=== PATIENT | male | born 1990 | race Two or more races ===

== ENCOUNTER 2021-02-23 17:47 | Emergency (ER) | payer SELFPAY ==
[~2021-02-23] VITALS: Ht 162.6 cm; Wt 72.6 kg
[2021-02-23 22:13] VITALS: BP 131/85
[2021-02-24] MEDS ORDERED: DexAMETHasone SOD PHOS 10MG/1ML VIAL INJ IV ONE
== END 2021-02-24 00:44 | disposition home or self-care (01) ==
LOC: ER 17:49
DX: J06.9 Acute upper respiratory infection, unspecified (principal); Z20.822 Contact with and (suspected) exposure to COVID-19
CPT/HCPCS: 36415; 71045; 87426; 96374; 99284; J1100